=== PATIENT | female | born 1985 | race Caucasian/White ===

== ENCOUNTER 2017-06-15 10:33 | Emergency (ER) | payer OTHER ==
[~2017-06-15] VITALS: Ht 160 cm; Wt 54.0 kg
[~2017-06-15 10:33] MED LIST: BACTRIM,SEPT1 TABLET PO; BENTYL20 MG PO; FLAGYL500 MG PO; HYDROCODON-ACE1 EAC7 PO; MACROBID100 MG PO; NAPROXEN500 MG PO; NORCO 5/3251 TABLET PO; PYRIDIUM100 MG PO; PYRIDIUM200 MG PO; ZOFRAN4 MG PO
[2017-06-15 11:02] LABS: APPEARANCE SL.HAZY ((CLEAR)); BILIRUBIN NEGATIVE; BLOOD MODERATE; COLOR YELLOW ((YELLOW)); GLUCOSE (STRIP) NEGATIVE; KETONES NEGATIVE; LEUKOCYTES NEGATIVE; NITRITE NEGATIVE; PROTEIN (STRIP) 30; SPECIFIC GRAVITY 1.025 (1.000-1.030)
[2017-06-15 11:11] LABS: HEMOGLOBIN 12.3 G/DL (11.9-15.5); MCH 33.2 PG (29.0-34.0); MCHC 35.1 G/DL (30.0-36.0); MCV 94.6 FL (83-99); PLATELET COUNT 155 K/uL (156-360); WHITE BLOOD COUNT 6.3 K/uL (4.1-10.2)
[2017-06-15 11:20] LABS: ALBUMIN 4.3 g/dL (3.2-4.8); CHLORIDE 108 mEq/L (99-109); POTASSIUM 4.2 mEq/L (3.7-5.4); SODIUM 141 mEq/L (136-147)
[2017-06-15 11:22] LABS: GLUCOSE 94 mg/dL (70-99); TOTAL PROTEIN 6.8 g/dL (6.4-8.3)
[2017-06-15 11:24] LABS: TOTAL BILIRUBIN 0.5 mg/dL (0.0-1.0)
[2017-06-15 11:26] LABS: ALKALINE PHOSPHATASE 60 IU/L (3-129); CREATININE 0.9 mg/dL (0.6-1.3); GFR ESTIMATE (CALCULATED) > 59 mL/min/
[2017-06-15 11:27] LABS: AST (GOT) 33 IU/L (2-34); UREA NITROGEN (BUN) 12 mg/dL (9-23)
[2017-06-15 11:29] LABS: ALT (GPT) 30 IU/L (3-49)
[2017-06-15 11:31] LABS: BACTERIA NONE SEEN /HPF; EPITHELIAL CELLS RARE /HPF; MUCUS TRACE /LPF; RED BLOOD CELLS 0-5 /HPF (0-5); UCUL ADDED? NO; WHITE BLOOD CELLS 0-5 /HPF (0-5)
[2017-06-15 11:34] LABS: QUANTITATIVE HCG < 4.0 MIU/ML
[2017-06-15 11:59] LABS: BASOPHIL (%) 0.2 % (0-1); EOSINOPHIL (%) 1.3 % (0-5); EOSINOPHIL COUNT 0.1 K/uL (0-0.3); HEMATOCRIT 32.7 % (36.0-46.0); HEMOGLOBIN 11.5 G/DL (11.9-15.5); IMMATURE GRANULOCYTE (%) 0.2 % (0.0-0.7); LYMPHOCYTE (%) 35.3 % (15-42); LYMPHOCYTE COUNT 2.2 K/uL (1.0-2.8); MCH 33.3 PG (29.0-34.0); MCHC 35.2 G/DL (30.0-36.0); MCV 94.8 FL (83-99); MONOCYTE COUNT 0.4 K/uL (0-0.8); NEUTROPHIL COUNT 3.5 K/uL (1.8-6.4); PLATELET COUNT 144 K/uL (156-360); RBC DIS.WIDTH-CV 12.1 % (11.8-14.6); RBC DIS.WIDTH-SD 41.6 % (39-53); RED BLOOD COUNT 3.45 M/uL (3.80-5.20); WHITE BLOOD COUNT 6.2 K/uL (4.1-10.2)
[2017-06-15 12:21] LABS: LIPASE 31 U/L (1.0-51.0)
[2017-06-15] MEDS ORDERED: MOTRIN600 MG PO (14:39)
[2017-06-15] MEDS ORDERED: BENTYL20 MG PO (14:39)
[2017-06-15 14:42] LABS: SOURCE SWAB
[2017-06-15 16:14] VITALS: BP 99/67
== END 2017-06-15 16:19 | disposition home or self-care (01) ==
LOC: EME 10:33
PROVIDERS: Emergency Medicine
DX: R10.31 Right lower quadrant pain (principal); R10.33 Periumbilical pain; R19.7 Diarrhea, unspecified; F17.200 Nicotine dependence, unspecified, uncomplicated
CPT/HCPCS: 74177; 80053; 81003; 83690; 84702; 85025; 85027; 87210; 87491; 87591; 99281; 99284; J0500; J1885; J2405

== ENCOUNTER 2017-08-06 13:10 | Emergency (ER) | payer OTHER ==
[~2017-08-06] VITALS: Ht 160 cm; Wt 52.0 kg
[~2017-08-06 13:10] MED LIST changes: +MOTRIN600 MG PO
[2017-08-06 17:19] LABS: HEMOGLOBIN 13.4 G/DL (11.9-15.5); MCH 33.1 PG (29.0-34.0); MCHC 36.2 G/DL (30.0-36.0); MCV 91.4 FL (83-99); PLATELET COUNT 154 K/uL (156-360); RBC DIS.WIDTH-CV 11.9 % (11.8-14.6); RBC DIS.WIDTH-SD 39.8 % (39-53); RED BLOOD COUNT 4.05 M/uL (3.80-5.20); WHITE BLOOD COUNT 6.4 K/uL (4.1-10.2)
[2017-08-06 17:27] LABS: D-DIMER ELISA < 150.00 ng/mLDDU (<230)
[2017-08-06 17:33] LABS: CHLORIDE 107 mEq/L (99-109); POTASSIUM 3.7 mEq/L (3.7-5.4); SODIUM 141 mEq/L (136-147)
[2017-08-06 17:35] LABS: GLUCOSE 87 mg/dL (70-99)
[2017-08-06 17:39] LABS: CREATININE 0.8 mg/dL (0.6-1.3); GFR ESTIMATE (CALCULATED) > 59 mL/min/
[2017-08-06 17:40] LABS: UREA NITROGEN (BUN) 12 mg/dL (9-23)
[2017-08-06 17:43] LABS: TROP-I INTERPRETATION NEGATIVE; TROPONIN-I < 0.01 ng/mL (0.0-0.30)
[2017-08-06 17:48] LABS: QUANTITATIVE HCG < 4.0 MIU/ML
[2017-08-06 18:15] VITALS: BP 103/64
== END 2017-08-06 18:16 | disposition left against medical advice (07) ==
LOC: EME 13:10
PROVIDERS: Physician Assistant
DX: R07.9 Chest pain, unspecified (principal); F17.200 Nicotine dependence, unspecified, uncomplicated
CPT/HCPCS: 71046; 80048; 84484; 84702; 85027; 85379; 93005; 99281; 99284

== ENCOUNTER 2017-08-11 11:38 | Emergency (ER) | payer OTHER ==
[~2017-08-11] VITALS: Ht 165.1 cm; Wt 55.0 kg
[2017-08-11 12:29] LABS: BASOPHIL (%) 0.2 % (0-1); EOSINOPHIL (%) 1.9 % (0-5); EOSINOPHIL COUNT 0.1 K/uL (0-0.3); HEMATOCRIT 34.6 % (36.0-46.0); HEMOGLOBIN 12.7 G/DL (11.9-15.5); IMMATURE GRANULOCYTE (%) 0.2 % (0.0-0.7); LYMPHOCYTE (%) 30.6 % (15-42); LYMPHOCYTE COUNT 1.8 K/uL (1.0-2.8); MCH 33.8 PG (29.0-34.0); MCHC 36.7 G/DL (30.0-36.0); MONOCYTE (%) 5.8 % (3-12); MONOCYTE COUNT 0.3 K/uL (0-0.8); NEUTROPHIL (%) 61.3 % (45-76); NEUTROPHIL COUNT 3.5 K/uL (1.8-6.4); PLATELET COUNT 142 K/uL (156-360); RBC DIS.WIDTH-CV 11.8 % (11.8-14.6); RBC DIS.WIDTH-SD 39.7 % (39-53); RED BLOOD COUNT 3.76 M/uL (3.80-5.20); WHITE BLOOD COUNT 5.7 K/uL (4.1-10.2)
[2017-08-11 12:37] LABS: CHLORIDE 107 mEq/L (99-109); D-DIMER ELISA < 150.00 ng/mLDDU (<230); SODIUM 142 mEq/L (136-147)
[2017-08-11 12:38] LABS: GLUCOSE 87 mg/dL (70-99); PTT 30.2 SEC (25-37)
[2017-08-11 12:42] LABS: CREATININE 0.8 mg/dL (0.6-1.3); GFR ESTIMATE (CALCULATED) > 59 mL/min/
[2017-08-11 12:43] LABS: UREA NITROGEN (BUN) 9 mg/dL (9-23)
[2017-08-11 12:49] LABS: TROP-I INTERPRETATION NEGATIVE; TROPONIN-I < 0.01 ng/mL (0.0-0.30)
[2017-08-11] MEDS ORDERED: TYLENOL WITH C1 EACH PO (13:47)
[2017-08-11 13:57] VITALS: BP 96/60
== END 2017-08-11 13:59 | disposition home or self-care (01) ==
LOC: EME 11:38
PROVIDERS: Emergency Medicine
DX: R07.89 Other chest pain (principal); F17.200 Nicotine dependence, unspecified, uncomplicated
CPT/HCPCS: 71045; 80048; 84484; 85025; 85379; 85610; 85730; 93005; 99281; 99284; J1885